=== PATIENT | female | born 1990 | race African-American/Black ===

== ENCOUNTER 2019-11-28 13:57 | Emergency (ER) | payer OTHER, SELFPAY ==
[2019-11-28 14:13] VITALS: BP 142/73; PULSE 60; RESP 20; TEMP 36.6; O2SAT 100
--- NOTE | 2019-11-28 14:34 | ED.URI ---
HPI - URI/Sore Throat General Chief Complaint: Upper Respiratory Infection Stated Complaint: Bodyaches/Cough/Mucus/Sore Throat/Fatigue/Chills Time Seen by Provider: 11/28/19 14:27 Source: patient and RN notes reviewed Mode of arrival: ambulatory Limitations: no limitations History of Present Illness HPI Narrative: Patient presents today complaint of a 2-day history of body aches, bilateral ear pain, sore throat, nasal congestion and chills. She does report history of asthma. Pain increases with swallowing. Currently rates her sore throat 04/16. She has not been taking any medication for symptoms prior to arrival. She did not receive a flu vaccine. She is a non-smoker. She works in a daycare center. Known exposure to influenza MD elicited complaint: cough and sore throat Related Data Allergies Allergy/AdvReac Type Severity Reaction Status Date / Time Penicillins Allergy Unknown Hives / Verified 04/05/17 13:07 Red Face Review of Systems Review of Systems: Narrative: CONSTITUTIONAL: Denies fever, or sweats.+ Chills, body aches EYES: Denies visual changes, redness, or discharge. ENT: Denies rhinorrhea. + Congestion, sore throat, ear pain CARDIOVASCULAR: Denies chest pain, palpitations, or edema. RESPIRATORY: Denies dyspnea.+ Cough GASTROINTESTINAL: Denies abdominal pain, nausea, vomiting, or diarrhea. GENITOURINARY: Denies dysuria or hematuria. SKIN: Denies rash, itching, or wounds. MUSCULOSKELETAL: Denies back pain, joint pain, or myalgia. NEUROLOGIC: Denies headache, numbness, tingling, or weakness. PSYCH: Denies depression or anxiety. PMFSH Comments At time of signature, I have reviewed and agree with nursing past medical, surgical, social and family history unless otherwise noted. Please see nursing chart for further information. There is no relevant family history pertinent to the presenting complaint Exam Narrative: Exam Narrative: GENERAL: Mildly ill-appearing, well-nourished, and in no acute distress. HEAD: Normocephalic, atraumatic. EYES: EOMI. No redness or drainage. Conjunctivae normal. ENT: Mucous membranes pink and moist. Nares congested. No rhinorrhea. TMs normal bilaterally. Throat mildly erythematous without edema or exudate. Uvula midline. NECK: Normal AROM. Supple. No lymphadenopathy. CHEST: No respiratory distress. Clear to auscultation. HEART: Regular rate and rhythm. No murmur appreciated. Normal peripheral pulses. EXTREMITIES: Normal range of motion. No edema. SKIN: Warm, dry, no rash. NEURO: No focal deficits. Alert and oriented x3. Gait steady. PSYCH: Normal affect. No signs of depression or anxiety. Course Vital Signs Vital signs: Vital Signs Temperature 97.9 F 11/28/19 14:13 Pulse Rate 60 11/28/19 14:13 Respiratory Rate 20 11/28/19 14:13 Blood Pressure 142/73 H 11/28/19 14:13 Pulse Oximetry 100 11/28/19 14:13 Temperature 97.9 F 11/28/19 14:13 Pulse Rate 60 11/28/19 14:13 Respiratory Rate 11/28/19 14:13 Blood Pressure 142/73 H 11/28/19 14:13 Pulse Oximetry 100 11/28/19 14:13 Reviewed. Pt has been instructed to follow up with her PCP regarding her elevated blood pressure today. MDM - URI/Sore Throat Differential Diagnosis Differential diagnosis: Likely upper respiratory infection, otitis media, influenza, pharyngitis and other (Strep throat) Lab Data Attestation: I reviewed the patient's lab results. Labs: Influenza A Screen Negative Reference Range: Negative Influenza B Screen Negative Reference Range: Negative Strep Screen Presumptive Negative *(Reference Range: Negative)* Critical Care Time Critical Care Time Critical Care Time: No Discharge Plan Discharge Clinical Impression: Bronchitis Upper respiratory infection Qualifiers: URI type: unspecified URI Qualified Code(s): J06.9 - Acute upper respiratory infection, unspecified Patient Disposition: [facility]
== END 2019-11-28 14:56 | disposition home or self-care (01) ==
PROVIDERS: Emergency Provider Nurse Practitioner
DX: J40 Bronchitis, not specified as acute or chronic (principal); J06.9 Acute upper respiratory infection, unspecified
CPT/HCPCS: 87081; 87804; 87880; 99213; G0463

== ENCOUNTER 2019-12-16 16:25 | Emergency (ER) | payer OTHER, SELFPAY ==
[2019-12-16 16:46] VITALS: BP 116/70; PULSE 63; RESP 16; TEMP 37.1; O2SAT 100
--- NOTE | 2019-12-16 16:59 | ED.GENADULT ---
HPI - General Adult General Chief complaint: Upper Respiratory Infection Stated complaint: Cough/Fatigue/No appetite Time Seen by Provider: 12/16/19 16:59 Source: patient Mode of arrival: ambulatory Limitations: no limitations History of Present Illness HPI narrative: 29-year-old female patient presents to the the medical center with complaints of cold symptoms for the past 15 days. Patient states she was seen here about 2 weeks ago. Patient was tested for influenza at that time and was negative. Patient was given steroids for possible asthma exacerbation. Patient states she has been using her albuterol inhaler that has help with some the shortness of breath and cough. Patient presents today with complaints of pain to the face especially to the right side. Patient states it feels like a lot of pressure. Patient states she still has had a little bit of a cough but the albuterol inhaler has been helping it. Patient also complaining of low back pain along with increase in urgency and pain with urination. Patient states she did not receive flu shot this year. Patient denies or breast-feeding at this time. Related Data Allergies Allergy/AdvReac Type Severity Reaction Status Date / Time Penicillins Allergy Unknown Hives / Verified 04/05/17 13:07 Red Face Review of Systems Review of Systems: Narrative: CONSTITUTIONAL: Denies fever, chills, or sweats. EYES: Denies visual changes, redness, or discharge. ENT: Positive rhinorrhea, congestion, denies sore throat, or otalgia. CARDIOVASCULAR: Denies chest pain, palpitations, or edema. RESPIRATORY: Positive cough, denies dyspnea. GASTROINTESTINAL: Denies abdominal pain, nausea, vomiting, or diarrhea. GENITOURINARY: Denies dysuria or hematuria. Positive pain with urination and urgency. SKIN: Denies rash or itching. MUSCULOSKELETAL: Positive low back pain, denies joint pain, or myalgia. NEUROLOGIC: Positive headache, denies numbness, or weakness. PSYCHIATRIC: Denies anxiety or depression. [facility] Past Medical History Medical History (Updated 12/16/19 @ 17:15 by WILFREDO Grant) Asthma exacerbation DVT (deep vein thrombosis) in Gastritis Hiatal hernia Narcolepsy Perianal abscess Seasonal allergies Urinary tract infection Comments At the time of my signature I agree with nursing past medical history, surgical, social, and family history. There is no relevant family history pertinent to the presenting complaint. Exam Narrative: Exam Narrative: GENERAL: Well-appearing, well-nourished, and in no acute distress. HEAD: Normocephalic, atraumatic. Tenderness noted to frontal and maxillary sinuses on palpation EYES: PERRLA and EOMI. ENT: Nares with erythema and edema noted bilaterally with the left nare swollen shut, no rhinorrhea or epistaxis. Mucous membranes moist. Posterior pharynx with no erythema, tonsil enlargement, exudates or lesions present. Bilateral TMs are clear with no erythema or foreign bodies in the canal. NECK: Supple. No lymphadenopathy CHEST: Clear to auscultation. No respiratory distress. HEART: Regular rate and rhythm. No murmur heard. Normal peripheral pulses. ABDOMEN: Soft, nontender, nondistended, normal active bowel sounds. EXTREMITIES: Normal range of motion. No edema. SKIN: Warm, dry, no rash. NEURO: No focal deficits. Alert and oriented x3. Course Vital Signs Vital signs: Vital Signs Temperature 37.1 C 12/16/19 16:46 Pulse Rate 63 12/16/19 16:46 Respiratory Rate 16 12/16/19 16:46 Blood Pressure 116/70 12/16/19 16:46 Pulse Oximetry 100 12/16/19 16:46 Temperature 37.1 C 12/16/19 16:46 Pulse Rate 63 12/16/19 16:46 Respiratory Rate 16 12/16/19 16:46 Blood Pressure 116/70 12/16/19 16:46 Pulse Oximetry 100 12/16/19 16:46 Vital signs reviewed. Medical Decision Making Differential Diagnosis Differential Diagnosis: Differential diagnosis: Allergic rhinitis, chronic sinusitis, tonsillitis, acute sinus
== END 2019-12-16 17:21 | disposition home or self-care (01) ==
PROVIDERS: Emergency Provider Nurse Practitioner Family
DX: J01.90 Acute sinusitis, unspecified (principal); J00 Acute nasopharyngitis [common cold]; R30.0 Dysuria; J45.909 Unspecified asthma, uncomplicated; Z86.73 Personal history of transient ischemic attack (TIA), and cerebral infarction without residual deficits; Z87.440 Personal history of urinary (tract) infections
CPT/HCPCS: 81003; 81025; 87081; 87086; 87088; 87880; 99213; G0463

== ENCOUNTER 2021-02-01 20:26 | Emergency (ER) | payer OTHER, SELFPAY ==
[2021-02-01 20:29] VITALS: BP 135/87; PULSE 100; RESP 20; TEMP 37.7; O2SAT 98
--- NOTE | 2021-02-01 21:07 | PC.NURSE ---
Pt states she wanted a rapid covid swab, i informed her we did not have rapid covid swab but that we did have a pcr and she stated she wants to go to another hospital that has rapid covid swabs. I informed her that she is welcome to be seen by a ERP for any other concerns that she may have. Pt denied any other requests and left without being seen by ERP.
== END 2021-02-01 21:10 | disposition left against medical advice (07) ==
DX: Z53.21 Procedure and treatment not carried out due to patient leaving prior to being seen by health care provider (principal)
CPT/HCPCS: 99199

== ENCOUNTER → 2021-04-14 11:00 | Outpatient (CLI) | payer OTHER, SELFPAY ==
--- NOTE | ~2021-04-14 | US_ITS ---
EXAMINATION: US pelvic complete DATE: 04/14/2021 11:18 INDICATION: Leg pain. Ovarian cyst seen on CT. Comparison:Ultrasound dated 01/09/2014 TECHNIQUE: Multiple transabdominal sonographic images of the pelvis performed. FINDINGS: The uterus measures 6.9 x 2.6 x 3.7 cm. The endometrial complex measures 9 mm. The right ovary measures 4 x 1.8 x 2.4 cm and the left ovary measures 5.5 x 4.7 x 6.2 cm. There is a simple cyst of the left ovary measuring 5.1 x 4.2 x 4.2 cm There are small follicles in each ovary. N ormal doppler signal in both ovaries. There is trace free fluid in the pelvis. There are no abnormal masses seen on either side. IMPRESSION: 1. Left ovarian simple cyst measuring 5.1 cm maximum dimension. Reviewed, dictated and finalized at location A.
== END ==
PROVIDERS: Visit Provider Obstetrics & Gynecology
DX: R10.2 Pelvic and perineal pain (principal); N83.292 Other ovarian cyst, left side
CPT/HCPCS: 76856

== ENCOUNTER → 2021-05-23 13:20 | Outpatient (CLI) | payer OTHER, SELFPAY ==
--- NOTE | ~2021-05-23 | US_ITS ---
EXAMINATION: US pelvic complete DATE: 05/23/2021 13:40 INDICATION: Follow-up left ovarian cyst Comparison:04/14/2021 TECHNIQUE: Multiple transabdominal sonographic images of the pelvis performed. FINDINGS: The uterus measures 6.7 x 3 x 3.4 cm. The endometrial complex measures 8 mm. The right ovary measures 2.8 x 1.9 x 2.6 cm and the left ovary measures 5.5 x 5 x 4.4 cm. There are small follicles in each ovary. There is a 4.5 cm left ovarian cyst. Normal doppler signal in both ova roge. There is no free fluid in the pelvis. There are no abnormal masses seen on either side. IMPRESSION: 1. Left ovarian cyst measuring 4.5 cm. Reviewed, dictated and finalized at location A.
== END ==
PROVIDERS: Visit Provider Obstetrics & Gynecology
DX: N83.202 Unspecified ovarian cyst, left side (principal); R10.2 Pelvic and perineal pain
CPT/HCPCS: 76856

== ENCOUNTER → 2021-07-04 15:25 | Outpatient (CLI) | payer OTHER, SELFPAY ==
--- NOTE | ~2021-07-04 | US_ITS ---
EXAMINATION: US pelvic complete DATE: 07/04/2021 15:50 INDICATION: Left ovarian cyst TECHNIQUE: Multiple transabdominal and endovaginal sonographic images of the pelvis were obtained. COMPARISON: None. FINDINGS: The uterus measures 8 x 3.2 x 3.5 cm. The endometrial complex measures 3 mm. The right ovar y measures 2.7 x 2.1 x 2.7 cm. The left ovary measures 4.9 x 4.3 x 5.1 cm and contains a 3.8 cm cyst. There is normal vascular flow in the ovaries. There is no free fluid in the pelvis. IMPRESSION: 1. 3.8 cm left ovarian cyst, with decrease in size, considered normal in a reproductive age female. Reviewed, dictated and finalized at location A. IMPRESSION: 1. 3.8 cm left ovarian cyst, with decrease in size, considered normal in a repr oductive age female.
== END ==
PROVIDERS: Visit Provider Obstetrics & Gynecology
DX: N83.202 Unspecified ovarian cyst, left side (principal)
CPT/HCPCS: 76856

== ENCOUNTER → 2021-09-30 11:37 | Outpatient (CLI) | payer OTHER, SELFPAY ==
--- NOTE | ~2021-09-30 | US_ITS ---
EXAMINATION: US transvaginal EXAM DATE: 09/30/2021 11:56 INDICATION: Ovarian cyst, left TECHNIQUE: Pelvic transvaginal sonogram was performed. There are multiple grayscale and Doppler imag es available for interpretation. Comparison is made to prior examination from 07/04/2021, 05/23/2021. FINDINGS: Uterus measures 6.1 x 3.0 x 3.7 cm, and is morphologically normal. Endometrial stripe ferny sures 14 mm, within normal limits. There is small free pelvic fluid. Right adnexa: The ovary measures 3.1 x 1.9 x 2.0 cm and is morphologically normal. Ovarian vascular f low confirmed. Left adnexa: The ovary measures 5.1 x 4.0 x 4.4 cm, with complex hypoechoic septated cystic lesion me asuring 4.6 x 3.5 x 4.0 cm (could be the same lesion seen on prior studies). On this examination ther e is small mural nodule of soft tissue echogenicity suspected. Ovarian vascular flow confirmed. IMPRESSION: Persistent complex cystic left ovarian lesion; could be hemorrhagic cyst but goes typical ly do not persist for multiple months, assuming this is the same lesion as previously seen. Consider MRI pelvis without and with contrast for further evaluation. Reviewed, dictated and finalized at location A. [employer] IMPRESSION: Persistent complex cystic left ovarian lesion; could be hemorrhagic cyst but goes typically do not persist for multiple months, assuming this is t he same lesion as previously seen. Consider MRI pelvis without and with contras t for further evaluation.
== END ==
PROVIDERS: Visit Provider Obstetrics & Gynecology
DX: N83.202 Unspecified ovarian cyst, left side (principal)
CPT/HCPCS: 76830

== ENCOUNTER → 2021-11-26 11:41 | Outpatient (CLI) | payer OTHER, SELFPAY ==
--- NOTE | ~2021-11-26 | US_ITS ---
EXAMINATION: US pelvic complete w TV DATE: 11/26/2021 12:13 INDICATION: Personal history of pelvic disease Comparison:Ultrasound dated 09/30/2021 TECHNIQUE: Multiple transabdominal and endovaginal sonographic images of the pelvis performed. FINDINGS: The uterus measures 6.7 x 3 x 3.9 cm. The endometrial complex measures 11 mm. The right ovary measures 5.6 x 4.4 x 5.7 cm and the left ovary measures 5 x 3.6 x 4.7 cm. There is a complicated cyst in the right ovary measuring 5.5 x 5 x 4.4 cm, likely hemorrhagic. There is a hemorr hagic cyst of the left ovary measuring 4.4 x 3.3 x 3.8 cm cm Normal doppler signal in both ovaries. There is free fluid in the pelvis. There are no abnormal masses seen on either side. IMPRESSION: 1. Bilateral complicated ovarian cyst, likely hemorrhagic. Recommend follow-up ultrasound in 4-6 week s. Reviewed, dictated and finalized at location A. [employer] TECHNICIAN IMPRESSION: 1. Bilateral complicated ovarian cyst, likely hemorrhagic. Recommend follow-up ultrasound in 4-6 weeks.
== END ==
PROVIDERS: Visit Provider Obstetrics & Gynecology
DX: Z87.42 Personal history of other diseases of the female genital tract (principal)
CPT/HCPCS: 76830; 76856

== ENCOUNTER → 2021-12-31 09:58 | Outpatient (CLI) | payer OTHER, SELFPAY ==
--- NOTE | ~2021-12-31 | US_ITS ---
EXAMINATION: US pelvic complete w TV EXAM DATE: 12/31/2021 10:18 INDICATION: N83.209 - Unspecified ovarian cyst, unspecified side. TECHNIQUE: Pelvic transabdominal and transvaginal sonogram was performed. There are multiple graysca le and Doppler images available for interpretation. Comparison is made to prior examination from 11/26, 4 other ultrasounds dating back to 04/14/2021. FINDINGS: Uterus measures 6.3 x 2.7 x 3.4 cm, and is morphologically normal. Endometrial stripe ferny sures 6 mm, within normal limits. There is no free pelvic fluid. Right adnexa: The ovary measures 3.5 x 2.2 x 2.9 cm and is morphologically normal. Ovarian vascular f low confirmed. Left adnexa: The ovary measures 5.0 x 3.9 x 4.2 cm with a complex cystic region measuring 4.4 x 3.5 x 3.5 cm, appearance is consistent with a hemorrhagic cyst, but similar sized lesion has present on ul trasounds dating back to April 2021. Differential diagnosis includes endometrioma, teratoma cystic ova ezra neoplasm (would favor benign histology given this has not increased in size (assuming it is the same lesion as on prior studies). Ovarian vascular flow confirmed. IMPRESSION: Complex cystic left ovarian lesion, chronic assuming it is same lesion present on prior u ltrasounds. Appearance most consistent with hemorrhagic cyst but other possibilities include endometr ioma, teratoma, cystic ovarian neoplasm. Reviewed, dictated and finalized at location G. IMPRESSION: Complex cystic left ovarian lesion, chronic assuming it is same les ion present on prior ultrasounds. Appearance most consistent with hemorrhagic c yst but other possibilities include endometrioma, teratoma, cystic ovarian neop lasm.
== END ==
PROVIDERS: Visit Provider Obstetrics & Gynecology
DX: N83.292 Other ovarian cyst, left side (principal)
CPT/HCPCS: 76830; 76856